=== PATIENT | female | born 1985 | race Caucasian/White ===

== ENCOUNTER 2016-09-19 01:50 | Inpatient (IN) | payer BC ==
--- NOTE | ~2016-09-19 | HP ---
ADMIT: 09/19/2016 RM/LOC: [address] [facility] MR#: [id number] [facility] [address] [place], [place] [address] [address] [address] [place] [id number] History and Physical SEX: F AGE: 31 : 1985 DATE OF SERVICE: CHIEF COMPLAINT: Contractions and leaking of fluid. HISTORY OF PRESENT ILLNESS: This is a 31-year-old, G2, P1-0-0-1 with intrauterine at 39 weeks and 5 days via LMP and confirmed with 8- week ultrasound, who presents to the [facility] with a chief complaint of leaking fluid around 11:30 p.m. She reports contractions started shortly after a minute and have increased in intensity and frequency. The patient reports normal movement. Her has been complicated by anemia, otherwise uncomplicated. PAST MEDICAL HISTORY: Anemia. Denies history of asthma or hypertension. PAST SURGICAL HISTORY: She had tonsillectomy. ALLERGIES: NO KNOWN MEDICAL ALLERGIES. MEDICATIONS: 1. vitamin. 2. Iron supplementation. SOCIAL HISTORY: She is . She is a after school coordinator. She is a former tobacco smoker. No alcohol use or drug use during . FAMILY HISTORY: Her mother, brother, and sister have asthma. No other family history of hypertension or diabetes. REVIEW OF SYSTEMS: No headache, changes of vision, chest pain, or shortness of breath. No nausea, vomiting, diarrhea, or constipation. LABS: Blood type A positive. Direct antibody screen negative. GBS negative. One hour glucose tolerance test is 94. Hemoglobin upon admission was 12.7, platelets 229. RPR negative. Hepatitis B negative. HIV negative. Gonorrhea and chlamydia negative. Rubella immune. PHYSICAL EXAMINATION: VITAL SIGNS: Temperature 96.5 degrees Fahrenheit, blood pressure 97/73, pulse 90, she is saturating 99% on room air, respiratory rate 16. GENERAL: She is in acute distress. HEART: Regular rate and rhythm. LUNGS: Clear to auscultation bilaterally. ABDOMEN: Gravid. Estimated weight is 3700 g. heart tones, baseline 130, moderate variability, positive accelerations. No decelerations. At the time of presentation, sterile vaginal exam was 7, 80, and 0 station per nursing staff. [place] q.2 to 3 minutes. ASSESSMENT AND PLAN: This is a 31-year-old, G2, P1-0-0-1 with intrauterine at 39 weeks and 5 days via LMP and confirmed with 8-week ultrasound, ADMIT: 09/19/2016 RM/LOC: 228 [facility] MR#: [id number] [facility] [address] [address] [place] [address], [place] [address] History and Physical SEX: F AGE: 31 : 1985 who presents to Labor and Delivery and was admitted for active labor management. [facility]. [facility]. Verbal consent obtained. Anticipate spontaneous vaginal delivery. Blood type A positive. No RhoGAM indicated. 2. GBS negative. No antibiotic prophylaxis at this time. 3. Category 1 heart rate tracing. We will continue to monitor throughout the labor process. 4. Maternal well being. She desires epidural if possible. We will contact Anesthesia upon admission. 5. Anemia. Continue with iron supplementation. Hemoglobin 12.7 upon admission. 6. The patient was seen and discussed with attending physician. Fely Roy MD Resident / Nicole Delarosa MD / kaye JOB #: [id number] CC: Nicole Delarosa, Attending Physician Nicole Delarosa, Family Physician
--- NOTE | ~2016-09-19 | FD ---
ADMIT: 09/19/2016 RM/LOC: 228 [facility] MR#: [id number] [address] [address] [address] [place] [id number] Final Diagnosis SEX: F AGE: 31 : 1985 ADMISSION DATE: 09/19/2016 DISCHARGE DATE: 09/20/2016 FINAL DIAGNOSIS: 1. A 31-year-old 2 para 2-0-0-2 status post spontaneous vaginal delivery. 2. Anemia. PROCEDURE: 1. Spontaneous vaginal delivery. 2. Epidural catheter placement and removal. Fely Roy MD Resident / Nicole Delarosa MD / suha JOB #: [id number] CC: Nicole Delarosa MD, Attending Physician Nicole Delarosa MD, Family Physician
[~2016-09-19 01:50] MED LIST: CLARITIN10 M2 PO; DULCOLAX10 MG PO; MOTRIN-DPS800 MG PO; PRENATAL VITAM1 EAC4 PO; TYLENOL #3 DPS1 TAB PO
[2016-09-21] MEDS ORDERED: NIPPLECREAM TP (15:36)
[2016-09-21] MEDS ORDERED: COLACE-DPS100 MG PO (15:36)
[2016-09-21] MEDS ORDERED: Z-PAC PO (15:36)
[2016-09-21] MEDS ORDERED: FEOSOL-DPS325 MG PO (15:36)
--- NOTE | 2016-09-28 14:07 | OR ---
ADMIT: 09/19/2016 RM/LOC: 228 [facility] MR#: [id number] [address] [address] [place] [address] [place] [id number] Operative/Delivery Room Report SEX: F AGE: 31 : 1985 SURGERY DATE: 09/19/2016 SURGEON: Nicole Delarosa MD PROCEDURE: Spontaneous vaginal delivery. STAFF PHYSICIAN: Dr. Nicole Delarosa. RESIDENT: Fely Roy MD. PREOPERATIVE DIAGNOSES: 1. A 31-year-old, G2, P1-0-0-1 with intrauterine at 39 weeks and 5 days. 2. Anemia during . POSTOPERATIVE DIAGNOSIS: A 31-year-old, G2, P2-0-0-2, status post spontaneous vaginal delivery at 39 weeks and 5 days. ESTIMATED BLOOD LOSS: 250 mL. ANESTHESIA: Epidural. COMPLICATIONS: None. The patient tolerated the procedure well. FINDINGS: A viable female in KRYSTAL presentation with a weight of 3660 g. Apgars 8 and 9. Normal placenta with 3-vessel cord. HOSPITAL COURSE AND PROCEDURE: This is a 31-year-old G2, P1-0-0-1 with intrauterine at 39 weeks and 5 days, who presents to the Birthing Center with chief complaints of leaking of fluid and regular contractions. At the time of presentation, the patient was giovanni every 2 to 3 minutes and her cervix was found to be 7 cm dilated. She was admitted and an epidural catheter was placed for anesthesia. She quickly progressed to complete. The patient was prepped and draped in normal sterile fashion in a dorsal lithotomy position. Expulsive efforts were begun. The 's head was brought to the perineum and delivered over an intact perineum. The head restituted to the right. Anterior and posterior shoulder delivered without difficulty. No nuchal cord was present. The body followed. The was vigorous and crying, and was placed on the maternal abdomen. Infant was stimulated. No ADMIT: 09/19/2016 RM/LOC: 228 [facility] MR#: [id number] [address] [address] [place] [address] [place] [address] Operative/Delivery Room Report SEX: F AGE: 31 : 1985 bulb suction performed. After 1 minute of delayed cord clamping, the cord was clamped, cut, and the remained with the mother. Cord blood was collected. Cord gas was not collected. The placenta delivered spontaneously with a 3-vessel cord. Pitocin was administered per protocol. The vagina, perineum, and cervix were inspected for lacerations. No lacerations requiring repair were found. The patient did have a superficial abrasion periurethral as well as right vaginal sidewall. All tissues were hemostatic without repair. Counts were correct x2. At the completion of the procedure, the patient's epidural catheter was removed. Epidural catheter tip was noted to be intact. Dr. Nicole Delarosa was present for the entire delivery. Fely Roy MD Resident / Nicole Delarosa MD / peterl JOB #: [id number] CC: Nicole Delarosa, Attending Physician Nicole Delarosa, Family Physician
== END 2016-09-20 12:00 | disposition home or self-care (01) | DRG 775 ==
LOC: BC 01:50 → 2LDRP 01:50 → BC 09-21 08:00
PROVIDERS: ADMIT Obstetrics & Gynecology
PROC: 10E0XZZ Delivery of Products of Conception, External Approach (ICD-10-PCS; principal; 2016-09-19)
DX: O99.02 Anemia complicating childbirth (principal); D64.9 Anemia, unspecified; Z3A.39 39 weeks gestation of pregnancy; Z37.0 Single live birth